=== PATIENT | female | born 1960 | race Caucasian/White ===

== ENCOUNTER → 2020-10-05 07:17 | Outpatient (CLI) | payer BC, SELFPAY ==
[2020-10-05 10:50] LABS: Cholesterol 175 mg/dL (200); Glucose 91 mg/dL (74-106); High Density Lipoprotein 72 mg/dL; Triglycerides 59 mg/dL; Very Low Density Lipoprotein 12 mg/dL (5-40)
== END ==
PROVIDERS: Referring Provider Family Medicine; Visit Provider Family Medicine
DX: K58.9 Irritable bowel syndrome, unspecified (principal)
CPT/HCPCS: 36415; 80061; 82947

== ENCOUNTER 2021-10-16 08:50 | Outpatient (CLI) | payer BC, SELFPAY ==
[2021-10-16 10:43] LABS: Cholesterol 169 mg/dL (200); Glucose 90 mg/dL (74-106); High Density Lipoprotein 64 mg/dL; Triglycerides 56 mg/dL; Very Low Density Lipoprotein 11 mg/dL (5-40)
== END 2021-10-16 23:59 | disposition home or self-care (01) ==
LOC: MTLAB 08:52
PROVIDERS: PCP Family Medicine; Referring Provider Family Medicine; Visit Provider Family Medicine
DX: Z00.00 Encounter for general adult medical examination without abnormal findings (principal)
CPT/HCPCS: 36415; 80061; 82947